=== PATIENT | male | born 1985 | race Caucasian/White ===

== ENCOUNTER 2018-12-05 14:17 | Emergency (ER) | payer OTHER ==
[~2018-12-05] VITALS: Ht 175.2 cm; Wt 70.3 kg
[~2018-12-05 14:17] MED LIST: CYCLOBENZAPRINE10 MG PO; NAPROSYN500 MG PO; PENICILLIN VK500 MG PO; PREDNISONE20 M1 PO; TRAMADOL HCL50 MG PO
== END 2018-12-05 14:52 | disposition home or self-care (01) ==
LOC: ED 14:17
DX: S92.535A Nondisplaced fracture of distal phalanx of left lesser toe(s), initial encounter for closed fracture (principal); W22.8XXA Striking against or struck by other objects, initial encounter; Y93.11 Activity, swimming; Y92.34 Swimming pool (public) as the place of occurrence of the external cause; Y99.8 Other external cause status

== ENCOUNTER 2019-10-14 09:48 | Emergency (ER) | payer OTHER ==
[~2019-10-14] VITALS: Ht 175.2 cm; Wt 70.3 kg
[2019-10-14 11:04] LABS: BASO % 0.5 % (0.0-1.0); EOS % 0.5 % (1.0-4.0); HEMATOCRIT 39.5 % (42.0-52.0); LYMPH # 0.6 10*3/uL (1.3-4.4); LYMPH % 8.4 % (27.0-41.0); MEAN CELL VOLUME 97.8 fl (80.0-94.0); MEAN CORPUSCULAR HGB 32.7 pg (27.0-31.0); MEAN CORPUSCULAR HGB CONC 33.4 g/dl (33.0-37.0); MEAN PLATELET VOLUME 10.4 fl (9.6-12.3); MONO # 0.4 10*3/uL (0.1-1.0); MONO % 5.2 % (3.0-9.0); NEUT # 6.3 10*3/uL (2.3-7.9); NEUT % 85.3 % (47.0-73.0); PLATELET COUNT AUTOMATED 177 10*3/uL (130-400); RED BLOOD COUNT 4.04 10*6/uL (4.50-5.90); WHITE BLOOD COUNT 7.4 10*3/uL (4.8-10.8)
[2019-10-14 11:24] LABS: ALBUMIN 3.5 gm/dl (3.1-4.5); ALKALINE PHOSPHATASE 39 U/L (45-117); BUN 16 mg/dl (7-24); CHLORIDE 111 mmol/L (98-107); CREATININE 0.86 mg/dL (0.70-1.30); POTASSIUM 3.5 mmol/L (3.5-5.1); SGOT/AST 15 IU/L (3-35); SGPT/ALT 17 U/L (12-78); SODIUM 143 mmol/L (136-145); TOTAL PROTEIN 6.1 gm/dL (6.4-8.2)
[2019-10-14 12:49] LABS: CLARITY CLOUDY (CLEAR); COLOR YELLOW (YELLOW)
[2019-10-14 12:50] LABS: BILIRUBIN NEGATIVE (NEGATIVE); BLOOD 3+ (NEGATIVE); GLUCOSE NEGATIVE (NEGATIVE); KETONE 3+ (NEGATIVE); LEUKO ESTERASE NEGATIVE (NEGATIVE); NITRITE NEGATIVE (NEGATIVE); PH 8.5 (5.0-9.0); SPECIFIC GRAVITY 1.005 (1.005-1.030); UROBILINOGEN 0.2 E.U./dl (0.2-1.0)
[2019-10-14 12:53] LABS: RBC TNTC rbc/hpf (0-2)
[2019-10-14 12:55] LABS: BACTERIA 3+
== END 2019-10-14 14:43 | disposition home or self-care (01) ==
LOC: ED 09:48
PROVIDERS: Nurse Practitioner Family
DX: R10.32 Left lower quadrant pain (principal); R11.0 Nausea

== ENCOUNTER 2019-11-20 11:56 | Emergency (ER) | payer OTHER ==
[~2019-11-20] VITALS: Ht 175.2 cm; Wt 70.3 kg
[2019-11-20] MEDS ORDERED: IBU800 MG PO (13:22)
[2019-11-20 14:04] LABS: BASO % 0.4 % (0.0-1.0); EOS % 0.2 % (1.0-4.0); HEMATOCRIT 43.5 % (42.0-52.0); LYMPH # 0.7 10*3/uL (1.3-4.4); LYMPH % 7.4 % (27.0-41.0); MEAN CELL VOLUME 99.5 fl (80.0-94.0); MEAN CORPUSCULAR HGB 32.5 pg (27.0-31.0); MEAN CORPUSCULAR HGB CONC 32.6 g/dl (33.0-37.0); MEAN PLATELET VOLUME 10.6 fl (9.6-12.3); MONO # 0.5 10*3/uL (0.1-1.0); MONO % 4.7 % (3.0-9.0); NEUT # 8.4 10*3/uL (2.3-7.9); PLATELET COUNT AUTOMATED 146 10*3/uL (130-400); RED BLOOD COUNT 4.37 10*6/uL (4.50-5.90); RED CELL DISTRI WIDTH 12.4 % (0-14.5); WHITE BLOOD COUNT 9.7 10*3/uL (4.8-10.8)
[2019-11-20 14:20] LABS: ALBUMIN 4.1 gm/dl (3.1-4.5); ALKALINE PHOSPHATASE 52 U/L (45-117); BUN 16 mg/dl (7-24); CHLORIDE 107 mmol/L (98-107); CREATININE 1.14 mg/dL (0.70-1.30); POTASSIUM 3.5 mmol/L (3.5-5.1); SGOT/AST 23 IU/L (3-35); SGPT/ALT 22 U/L (12-78); SODIUM 139 mmol/L (136-145); TOTAL PROTEIN 7.4 gm/dL (6.4-8.2)
[2019-11-20 16:16] LABS: BACTERIA TRACE; BILIRUBIN NEGATIVE (NEGATIVE); BLOOD 1+ (NEGATIVE); CLARITY SL CLOUDY (CLEAR); COLOR YELLOW (YELLOW); GLUCOSE NEGATIVE (NEGATIVE); KETONE NEGATIVE (NEGATIVE); LEUKO ESTERASE NEGATIVE (NEGATIVE); NITRITE NEGATIVE (NEGATIVE); RBC 16-20 rbc/hpf (0-2); UROBILINOGEN 0.2 E.U./dl (0.2-1.0)
[2019-11-20] MEDS ORDERED: NORCO 5-325 TA1 EACH PO (16:26)
[2019-11-20] MEDS ORDERED: FLOMAX0.4 MG PO (16:26)
== END 2019-11-20 16:32 | disposition home or self-care (01) ==
LOC: ED 11:56
PROVIDERS: Nurse Practitioner Family
DX: N20.0 Calculus of kidney (principal)

== ENCOUNTER → 2019-12-01 | Outpatient (CLI) | payer OTHER ==
[~2019-12-01] MED LIST changes: +FLOMAX0.4 MG PO; +IBU800 MG PO; +NORCO 5-325 TA1 EACH PO
== END ==
LOC: CT 13:00
DX: N20.1 Calculus of ureter (principal)

== ENCOUNTER → 2019-12-10 | Outpatient (CLI) | payer OTHER ==
[2019-12-10 13:50] LABS: BASO # 0.1 10*3/uL (0.0-0.1); BASO % 0.9 % (0.0-1.0); EOS # 0.2 10*3/uL (0.0-0.4); EOS % 2.5 % (1.0-4.0); LYMPH # 1.8 10*3/uL (1.3-4.4); LYMPH % 22.6 % (27.0-41.0); MEAN CELL VOLUME 98.3 fl (80.0-94.0); MEAN CORPUSCULAR HGB 31.9 pg (27.0-31.0); MEAN CORPUSCULAR HGB CONC 32.4 g/dl (33.0-37.0); MEAN PLATELET VOLUME 10.4 fl (9.6-12.3); MONO # 0.7 10*3/uL (0.1-1.0); MONO % 9.3 % (3.0-9.0); NEUT # 5.1 10*3/uL (2.3-7.9); NEUT % 64.4 % (47.0-73.0); PLATELET COUNT AUTOMATED 230 10*3/uL (130-400); RED BLOOD COUNT 4.58 10*6/uL (4.50-5.90); RED CELL DISTRI WIDTH 12.5 % (0-14.5); WHITE BLOOD COUNT 7.9 10*3/uL (4.8-10.8)
[2019-12-10 13:50] LABS: BILIRUBIN NEGATIVE (NEGATIVE); BLOOD TRACE-INTACT (NEGATIVE); CLARITY SL CLOUDY (CLEAR); COLOR YELLOW (YELLOW); GLUCOSE NEGATIVE (NEGATIVE); KETONE NEGATIVE (NEGATIVE); LEUKO ESTERASE NEGATIVE (NEGATIVE); NITRITE NEGATIVE (NEGATIVE); SPECIFIC GRAVITY 1.025 (1.005-1.030); UROBILINOGEN 0.2 E.U./dl (0.2-1.0)
[2019-12-10 13:56] LABS: BACTERIA TRACE; EPITHELIAL CELLS 0-2; MUCOUS 2+; WBC 0-2 wbc/hpf (0-5)
[2019-12-10 14:22] LABS: CHLORIDE 104 mmol/L (98-107); SODIUM 138 mmol/L (136-145)
[2019-12-10 14:33] LABS: ALBUMIN 4.3 gm/dl (3.1-4.5); ALKALINE PHOSPHATASE 53 U/L (45-117); BUN 29 mg/dl (7-24); CHOLESTEROL 184 mg/dL (<200); CREATININE 0.81 mg/dL (0.70-1.30); FREE T4 1.05 ng/dl (0.76-1.46); HDL CHOLESTEROL 75 mg/dl (40-60); LDL CHOLESTEROL 98 mg/dL (9-159); SGOT/AST 17 IU/L (3-35); SGPT/ALT 25 U/L (12-78); TOTAL PROTEIN 7.7 gm/dL (6.4-8.2); TRIGLYCERIDES 53 mg/dl (<150); VLDL CHOLESTEROL 11 mg/dL (6-40)
[2019-12-10 14:42] LABS: VITAMIN D, 25-HYDROXY 30.7 ng/mL (30-100)
== END | disposition home or self-care (01) ==
LOC: LAB 12:36
PROVIDERS: Internal Medicine
DX: Z12.5 Encounter for screening for malignant neoplasm of prostate (principal); N39.0 Urinary tract infection, site not specified; R10.32 Left lower quadrant pain; R79.82 Elevated C-reactive protein (CRP); R74.8 Abnormal levels of other serum enzymes; R53.83 Other fatigue; Z87.440 Personal history of urinary (tract) infections

== ENCOUNTER 2024-09-08 21:09 | Emergency (ER) | payer SELFPAY ==
[~2024-09-08] VITALS: Ht 170.1 cm; Wt 70.3 kg
[2024-09-08] MEDS ORDERED: Doxycycline Hyclate 100 MG CAPSULE PO ONE (22:50)
[2024-09-08] MEDS ORDERED: Lidocaine Hydrochloride 2% 10 ML AMP SC ONE (22:50)
[2024-09-08] MEDS ORDERED: VIBRAMYCIN100 MG PO (23:21)
[2024-09-08] MEDS ORDERED: Acetaminophen/Hydrocodone 5 MG/325 MG TABLET PO ONE (23:25)
== END 2024-09-08 23:37 | disposition home or self-care (01) ==
LOC: ED 21:09
DX: L03.032 Cellulitis of left toe (principal); Z87.442 Personal history of urinary calculi

== ENCOUNTER 2024-09-10 17:19 | Emergency (ER) | payer SELFPAY ==
[~2024-09-10] VITALS: Ht 175.2 cm; Wt 70.3 kg
[~2024-09-10 17:19] MED LIST changes: +VIBRAMYCIN100 MG PO
[2024-09-10] MEDS ORDERED: Lidocaine Hydrochloride 2 ML AMP SC ONE (17:35)
[2024-09-10] MEDS ORDERED: CEPHALEXIN500 M1 PO (17:38)
[2024-09-10] MEDS ORDERED: SEPTDS PO (17:38)
[2024-09-10] MEDS ORDERED: Acetaminophen/Hydrocodone 5 MG/325 MG TABLET PO ONE (18:25)
== END 2024-09-10 18:09 | disposition home or self-care (01) ==
LOC: ED 17:19
DX: L03.012 Cellulitis of left finger (principal); Z79.899 Other long term (current) drug therapy

== ENCOUNTER 2024-09-13 19:21 | Inpatient (IN) | payer SELFPAY ==
[~2024-09-13] VITALS: Ht 177.8 cm; Wt 72.1 kg
[~2024-09-13 19:21] MED LIST changes: +CEPHALEXIN500 M1 PO; +SEPTDS PO
[2024-09-13 19:40] VITALS: BP 109/84
[2024-09-13] MEDS ORDERED: SODIUM CHLORIDE 0.9% 1,000 ML IV SCH (19:55)
[2024-09-13] MEDS ORDERED: Ondansetron Hydrochloride 4 MG/2 ML VIAL IV ONE (19:55)
[2024-09-13] MEDS ORDERED: HYDROmorphone Hydrochloride 1 MG/ML SYR IV ONE ×2 (19:55→23:05)
[2024-09-13 20:06] LABS: BASO # 0.1 10*3/uL (0.0-0.1); BASO % 0.7 % (0.0-1.0); EOS # 0.2 10*3/uL (0.0-0.4); HEMATOCRIT 38.3 % (42.0-52.0); MEAN CELL VOLUME 95.3 fl (80.0-94.0); MEAN CORPUSCULAR HGB 31.8 pg (27.0-31.0); MEAN CORPUSCULAR HGB CONC 33.4 g/dl (33.0-37.0); MEAN PLATELET VOLUME 8.8 fl (9.6-12.3); MONO # 0.5 10*3/uL (0.1-1.0); MONO % 5.9 % (3.0-9.0); NEUT # 5.7 10*3/uL (2.3-7.9); NEUT % 74.4 % (47.0-73.0); PLATELET COUNT AUTOMATED 296 10*3/uL (130-400); RED BLOOD COUNT 4.02 10*6/uL (4.50-5.90); RED CELL DISTRI WIDTH 12.6 % (0-14.5); WHITE BLOOD COUNT 7.7 10*3/uL (4.8-10.8)
[2024-09-13 20:23] LABS: BUN 18 mg/dl (9-23); CHLORIDE 104 mmol/L (98-107); POTASSIUM 3.6 mmol/L (3.4-5.1)
[2024-09-13] MEDS ORDERED: Vancomycin Hydrochloride 250 ML IV ONE (22:25)
[2024-09-13] MEDS ORDERED: CEFEPIME HCL IN DEXTROSE 5 % 50 ML IV ONE (22:25)
[2024-09-14] MEDS ORDERED: HYDROmorphONE Hydrochloride 0.5 MG/0.5 ML SYRINGE IV PRN (00:35)
[2024-09-14] MEDS ORDERED: HYDROmorphone Hydrochloride 1 MG/ML SYR IV PRN (01:30)
[2024-09-14 05:03] VITALS: BP 138/91
[2024-09-14 08:02] VITALS: BP 124/75
[2024-09-14] MEDS ORDERED: IOHEXOL 300 MG/ML 100 ML VIAL IV ONE (09:20)
[2024-09-14] MEDS ORDERED: MORPHINE Sulfate 2 MG/ML SYR IV PRN (09:50)
[2024-09-14] MEDS ORDERED: CEFEPIME HCL IN DEXTROSE 5 % 50 ML IV SCH (14:00)
[2024-09-14] MEDS ORDERED: Vancomycin Hydrochloride 1,250 MG in SODIUM CHLORIDE 0.9% 250 ML IV SCH (15:00)
[2024-09-14 16:13] VITALS: BP 136/79
[2024-09-14] MEDS ORDERED: Technetium Tc 99M Medronate 1 KIT KIT IV SCH (19:35)
[2024-09-15] VITALS (11 sets, daily range): BP systolic 109–133; BP diastolic 62–98
[2024-09-15 05:31] LABS: BUN 11 mg/dl (9-23); CHLORIDE 103 mmol/L (98-107); POTASSIUM 3.6 mmol/L (3.4-5.1)
[2024-09-15 06:20] LABS: BASO # 0.1 10*3/uL (0.0-0.1); BASO % 0.7 % (0.0-1.0); EOS # 0.3 10*3/uL (0.0-0.4); EOS % 4.3 % (1.0-4.0); HEMATOCRIT 35.6 % (42.0-52.0); MEAN CELL VOLUME 95.4 fl (80.0-94.0); MEAN CORPUSCULAR HGB 31.6 pg (27.0-31.0); MEAN CORPUSCULAR HGB CONC 33.1 g/dl (33.0-37.0); MEAN PLATELET VOLUME 9.2 fl (9.6-12.3); MONO # 0.6 10*3/uL (0.1-1.0); MONO % 8.9 % (3.0-9.0); NEUT # 4.1 10*3/uL (2.3-7.9); NEUT % 56.6 % (47.0-73.0); PLATELET COUNT AUTOMATED 281 10*3/uL (130-400); RED BLOOD COUNT 3.73 10*6/uL (4.50-5.90); RED CELL DISTRI WIDTH 12.8 % (0-14.5); WHITE BLOOD COUNT 7.2 10*3/uL (4.8-10.8)
[2024-09-15] MEDS ORDERED: Lactated Ringer's Solution 1,000 ML IV ONE (12:06)
[2024-09-15] MEDS ORDERED: BUPivacaine 0.5% 10 ML VIAL ONE (12:06)
[2024-09-15] MEDS ORDERED: HYDROmorphONE Hydrochloride 0.5 MG/0.5 ML SYRINGE IV PRN (13:25)
[2024-09-15] MEDS ORDERED: HYDROmorphONE Hydrochloride 0.5 MG/0.5 ML SYRINGE ONE ×2 (13:44→14:14)
[2024-09-15] MEDS ORDERED: Midazolam Hydrochloride 2 MG/2 ML VIAL IV ONE (20:59)
[2024-09-15] MEDS ORDERED: Ketorolac Tromethamine 30 MG/ML VIAL IV ONE (20:59)
[2024-09-15] MEDS ORDERED: Lidocaine Hydrochloride 5 ML VIAL IV ONE (20:59)
[2024-09-15] MEDS ORDERED: Ondansetron Hydrochloride 4 MG/2 ML VIAL IV ONE (20:59)
[2024-09-15] MEDS ORDERED: fentaNYL CITRATE 100 MCG/2 ML VIAL IV ONE (20:59)
[2024-09-15] MEDS ORDERED: Ketamine Hydrochloride 50 MG/5 ML SYRINGE IV ONE (20:59)
[2024-09-15] MEDS ORDERED: PROPOFOL 200 MG/20 ML VIAL IV ONE (20:59)
[2024-09-16] VITALS: BP 98/64
[2024-09-16 04:00] VITALS: BP 98/64
[2024-09-16 08:00] VITALS: BP 100/67; BP 152/74
[2024-09-16] MEDS ORDERED: OXYCODONE HCL (IR) 5 MG TAB PO PRN (09:00)
[2024-09-16] MEDS ORDERED: Ketorolac Tromethamine 15 MG/ML VIAL IV PRN (09:00)
[2024-09-16 12:00] VITALS: BP 95/66
[2024-09-16] MEDS ORDERED: MORPHINE Sulfate 2 MG/ML SYR IV PRN (12:35)
[2024-09-16] MEDS ORDERED: Acetaminophen/Hydrocodone ES 7.5/325 tablet PO PRN (12:35)
[2024-09-16 16:00] VITALS: BP 105/65
[2024-09-16] MEDS ORDERED: VANCOMYCIN/WATER FOR INJ (PEG) 250 ML IV SCH (16:00)
[2024-09-16] MEDS ORDERED: OXYCODONE HCL (IR) 10 MG TABLET PO PRN (19:45)
[2024-09-16 20:00] VITALS: BP 128/86
[2024-09-17] VITALS: BP 119/72
[2024-09-17 04:00] VITALS: BP 117/72
[2024-09-17 06:46] LABS: BASO # 0.1 10*3/uL (0.0-0.1); BASO % 0.9 % (0.0-1.0); EOS # 0.3 10*3/uL (0.0-0.4); HEMATOCRIT 36.3 % (42.0-52.0); MEAN CELL VOLUME 95.5 fl (80.0-94.0); MEAN CORPUSCULAR HGB 31.1 pg (27.0-31.0); MEAN CORPUSCULAR HGB CONC 32.5 g/dl (33.0-37.0); MEAN PLATELET VOLUME 8.9 fl (9.6-12.3); MONO # 0.9 10*3/uL (0.1-1.0); MONO % 15.5 % (3.0-9.0); NEUT # 2.5 10*3/uL (2.3-7.9); NEUT % 46.3 % (47.0-73.0); PLATELET COUNT AUTOMATED 258 10*3/uL (130-400); RED CELL DISTRI WIDTH 12.7 % (0-14.5); WHITE BLOOD COUNT 5.5 10*3/uL (4.8-10.8)
[2024-09-17 07:43] LABS: BUN 13 mg/dl (9-23); CHLORIDE 103 mmol/L (98-107); POTASSIUM 4.2 mmol/L (3.4-5.1)
[2024-09-17 08:00] VITALS: BP 128/84
[2024-09-17 12:00] VITALS: BP 116/81
[2024-09-17 16:00] VITALS: BP 120/82
[2024-09-17 20:00] VITALS: BP 120/82
[2024-09-17] MEDS ORDERED: DALVANCE500 MG IV (23:36)
[2024-09-17] MEDS ORDERED: LEVOFLOXACIN750 M2 PO (23:36)
[2024-09-17] MEDS ORDERED: AMOX-CLAV 875-1 EACH PO (23:36)
[2024-09-18] VITALS: BP 99/65
[2024-09-18 08:00] VITALS: BP 118/88
== END 2024-09-18 12:08 | disposition home or self-care (01) | DRG 603 ==
LOC: ED 19:21 → EDHOLD 22:29 → 5E 22:29 → EDHOLD 09-14 20:28 → 5E 09-14 23:49
PROVIDERS: Nurse Practitioner Family; ADMIT Internal Medicine; ATTEND Internal Medicine
PROC: 0RBX0ZX Excision of Left Finger Phalangeal Joint, Open Approach, Diagnostic (ICD-10-PCS; principal; 2024-09-15)
DX: L03.012 Cellulitis of left finger (principal); I73.1 Thromboangiitis obliterans [Buerger's disease]; S61.201A Unspecified open wound of left index finger without damage to nail, initial encounter; Z79.899 Other long term (current) drug therapy; Z79.01 Long term (current) use of anticoagulants; Z79.2 Long term (current) use of antibiotics; Z87.442 Personal history of urinary calculi; X58.XXXA Exposure to other specified factors, initial encounter; Y93.89 Activity, other specified; Y92.89 Other specified places as the place of occurrence of the external cause; Y99.8 Other external cause status

== ENCOUNTER → 2024-10-08 | Outpatient (CLI) | payer SELFPAY ==
[~2024-10-08] MED LIST changes: +AMOX-CLAV 875-1 EACH PO; +DALVANCE500 MG IV; +LEVOFLOXACIN750 M2 PO; +OXYCODONE-ACET1 EAC3 PO
== END | disposition home or self-care (01) ==
LOC: ORTHO 08:16
PROVIDERS: ATTEND Orthopaedic Surgery
DX: M86.8X4 Other osteomyelitis, hand (principal); I73.1 Thromboangiitis obliterans [Buerger's disease]

== ENCOUNTER → 2024-10-09 | Day surgery (SDC) | payer SELFPAY ==
[~2024-10-09] VITALS: Ht 175.2 cm; Wt 72.1 kg
[~2024-10-09] MED LIST changes: +BUPivacaine 0.5% 10 ML VIAL ONE; +Dexamethasone Sodium Phospha 4 MG/ML VIAL IV ONE; +HYDROmorphONE Hydrochloride 0.5 MG/0.5 ML SYRINGE IV ONE; +HYDROmorphONE Hydrochloride 0.5 MG/0.5 ML SYRINGE ONE; +Lidocaine Hydrochloride 2% 5 ML SDV IM ONE; +Lidocaine Hydrochloride 5 ML AMP ONE; +Midazolam Hydrochloride 2 MG/2 ML VIAL IV ONE; +Ondansetron Hydrochloride 4 MG/2 ML VIAL IV ONE; +PROPOFOL 200 MG/20 ML VIAL IV ONE; +fentaNYL CITRATE 100 MCG/2 ML VIAL IV ONE
[2024-10-09 10:46] VITALS: BP 113/77
[2024-10-09 12:05] VITALS: BP 96/60
[2024-10-09 12:20] VITALS: BP 111/66
[2024-10-09 12:35] VITALS: BP 107/65
[2024-10-09 12:46] VITALS: BP 113/72
== END | disposition home or self-care (01) ==
LOC: SDC 09-29 10:15
PROVIDERS: ATTEND Orthopaedic Surgery
DX: M86.642 Other chronic osteomyelitis, left hand (principal); L98.499 Non-pressure chronic ulcer of skin of other sites with unspecified severity; I73.1 Thromboangiitis obliterans [Buerger's disease]; M19.042 Primary osteoarthritis, left hand; Z87.891 Personal history of nicotine dependence